=== PATIENT | female | born 1970 | race Two or more races ===

== ENCOUNTER → 2018-10-26 | Outpatient (CLI) | payer OTHER | END | disposition home or self-care (01) | LOC: RAD 14:37 | DX: M54.5 Low back pain (principal); M16.12 Unilateral primary osteoarthritis, left hip; M75.112 Incomplete rotator cuff tear or rupture of left shoulder, not specified as traumatic ==

== ENCOUNTER 2024-06-21 06:49 | Day surgery (SDC) | payer OTHER ==
[2024-06-21] MEDS ORDERED: MIDAZOLAM HCL 2 MG/2 ML VIAL IV ONE (09:30)
[2024-06-21] MEDS ORDERED: ONDANSETRON HCL 2 MG/ML VIAL IV ONE (09:30)
[2024-06-21] MEDS ORDERED: DIPHENHYDRAMINE HCL 50 MG/ML VIAL 1ML IV ONE (09:30)
[2024-06-21] MEDS ORDERED: fentaNYL CITRATE 50 MCG/ML AMPUL IV PUSH ONE (09:30)
== END 2024-06-21 10:40 | disposition home or self-care (01) ==
LOC: AMB-ENDOS 06:49 → CIR.AMB 14:30
PROVIDERS: ATTEND Colon & Rectal Surgery
DX: R19.4 Change in bowel habit (principal); K29.00 Acute gastritis without bleeding; Z12.11 Encounter for screening for malignant neoplasm of colon; R10.13 Epigastric pain; K21.9 Gastro-esophageal reflux disease without esophagitis